=== PATIENT | female | born 1930 | race Caucasian/White ===

== ENCOUNTER 2018-02-11 09:49 | Outpatient (CLI) | payer MEDICARE, OTHER | END 2018-02-11 09:50 | disposition short-term general hospital (02) | LOC: EMS 09:49 | PROVIDERS: ATTEND Surgery | DX: M25.551 Pain in right hip (principal); M25.561 Pain in right knee; W01.0XXA Fall on same level from slipping, tripping and stumbling without subsequent striking against object, initial encounter; Y93.01 Activity, walking, marching and hiking; Y92.22 Religious institution as the place of occurrence of the external cause | CPT/HCPCS: A0425; A0429; A0888 ==

== ENCOUNTER 2019-05-13 06:34 | Outpatient (CLI) | payer MEDICARE, OTHER | END 2019-05-13 06:35 | disposition short-term general hospital (02) | LOC: EMS 06:34 | PROVIDERS: ATTEND Surgery | DX: R42 Dizziness and giddiness (principal); R11.0 Nausea | CPT/HCPCS: A0425; A0429; A0888 ==